=== PATIENT | female | born 1995 | race Caucasian/White ===

== ENCOUNTER 2020-02-23 07:57 | Day surgery (SDC) | payer BC, SELFPAY ==
[2020-02-22 12:25] VITALS: BMI 31.1
[2020-02-23] VITALS (7 sets, daily range): BP systolic 112–124; BP diastolic 72–88; PULSE 77–92; RESP 10–21; TEMP 36.7–37.3; O2SAT 94–100
--- NOTE | 2020-02-23 08:44 | ANES.PREANE2 ---
Pre-Anesthetic Assessment Pre-Anesthetic Assessment: Height/Weight: Height 1.65 m Weight 84.822 kg Temp Pulse Resp BP Pulse Ox 98.1 F 92 16 123/88 98 02/23/20 08:29 02/23/20 08:29 02/23/20 08:29 02/23/20 08:29 02/23/20 08:29 Preop Diagnosis: Desire para sterilization Proposed Procedure: Operation Date: 02/23/20 09:25 Proposed Procedures p Laparoscopic bilateral tubal fulguration with salpingectomy Code: 53625/Z30.2(Bilateral) - Dylan Obando MD s Laparoscopic Salpingectomy(Bilateral) - Dylan Obando MD Last intake: Intake Last Liquid Date 02/22/20 Last Liquid Time 21:00 Last Solid Date 02/22/20 Last Solid Time 17:30 Social: Social History: Alcohol (daily) and Tobacco Exam: Pre-Anes Outpt Exam: alert, oriented x 3, clear to auscultation bilaterally and regular rate & rhythm Airway: Submandibular: WNL Cervical ROM: WNL MP: 2 Dentition: Other (teeth ok) Pulmonary: Pulmonary: None reported CV/HEM: CV/HEM: None reported : : None reported Hepatic: Hepatic: None reported GI: GI: GERD (occ) Metabolic: Metabolic: None reported Musc/skel: Musc/skel: None reported Neuropsych: Neuropsych: None reported Anesthetic Plan: ASA status: 2 Anesthesia: Anesthesia Evaluation and General Risk of > 500 ml blood loss (7ml/kg in children): No PFSH Anesthesia PFSH: Family History Mother Diabetes Hypertension Grandfather Diabetes maternal Heart disease maternal Stroke paternal Grandmother Diabetes maternal Breast cancer paternal Stroke maternal Family/Other Diabetes maternal aunt Social History Smoking and tobacco status: current every day smoker cigarettes Packs smoked per day: 0.5 Alcohol intake: current Alcohol intake frequency: 0-2 Drinks per Day Alcohol type: hard liquor Data Anesthesia Cardiac Studies: No Data to Display
[2020-02-23 08:49] LABS: Basophils # 0.1 10^3/uL (0.0-0.1); Basophils % 0.5 %; Eosinophils # 0.2 10^3/uL (0.0-0.8); Eosinophils % 1.8 %; Hematocrit 44.9 % (37.0-47.0); Hemoglobin 15.4 g/dL (11.5-15.3); Lymphocytes # 2.7 10^3/uL (0.8-4.8); Lymphocytes % 28.1 %; Mean Corpuscular HGB Conc 34.3 g/dL (30.0-36.0); Mean Corpuscular Hemoglobin 31.8 pg (28.0-34.0); Mean Corpuscular Volume 92.8 fL (81-99); Mean Platelet Volume 10.3 fL (7.4-10.4); Monocytes # 0.7 10^3/uL (0.2-0.9); Monocytes % 7.2 %; Neutrophils # 5.9 10^3/uL (1.8-7.7); Neutrophils % 62.2 %; Nucleated Red Blood Cells % 0 %; Platelet Count 212 10^3/cmm (130-400); Red Blood Count 4.84 10^6/uL (4.1-5.3); Red Cell Distribution Width 12.8 % (12.1-15.1); White Blood Count 9.4 10^3/uL (4.0-10.0)
[2020-02-23] MEDS: sodium chloride 0.9% 1,000 ML 30 ML IV (08:52)
[2020-02-23 08:59] LABS: OR HCG Qualitative Urine Negative (Negative)
[2020-02-23 09:06] LABS: Anion Gap 15.4 (5-19); Blood Urea Nitrogen 9 mg/dL (6-20); Calcium 9.6 mg/dL (8.5-10.5); Carbon Dioxide 24 mmol/L (22-29); Chloride 103 mmol/L (98-107); Glomerular Filtration Rate 101.1 mL/min (90-130); Glucose 106 mg/dL (65-115); Osmolality Calculated 282 mOsm/kg (285-295); Potassium 4.4 mmol/L (3.5-5.1); Sodium 138 mmol/L (136-145)
--- NOTE | 2020-02-23 09:13 | W.PM.OPSUD ---
Surgery/Procedure H&P Update DATE OF PROCEDURE: February 23, 2020 DATE H&P PERFORMED: 02/22/20 H&P UPDATE INFORMATION: I have reviewed H&P completed within last 30 days, I have examined patient prior to procedure and No changes to prior documentation PREOP DIAGNOSIS: Desire para sterilization PLANNED PROCEDURE: Operation Date: 02/23/20 09:25 Proposed Procedures p Laparoscopic bilateral tubal fulguration with salpingectomy Code: 36269/Z30.2(Bilateral) - Dylan Obando MD s Laparoscopic Salpingectomy(Bilateral) - Dylan Obando MD
--- NOTE | 2020-02-23 10:54 | PM.OP ---
Operative Report Date of procedure: February 23, 2020 Pre-op Diagnosis: Desire para sterilization, Desire removal of Mirena IUS Post-op diagnosis: same Procedure Done: Laparoscopic bilateral fulguration salpingectomy Specimens removed/disposition: Left and right fallopian tubes Surgeon: Dylan Obando Anesthesia: General Estimated blood loss (mL): 10 IV fluids (mL): 800 Urine output (mL): 300 Complications: None Findings: Normal uterus fallopian tubes and ovaries. Mirena IUS identified Condition: stable Disposition: PACU Brief History: 34-year-old female desire permanent sterilization and removal of the Mirena IUS Procedure: After informed consent, the patient was taken to the operating room where general anesthesia was administered. She was placed in the dorsal lithotomy position and prepped and draped in sterile fashion. Pre-Procedure Time-Out verifying the correct patient identity, correct procedure verified with consent, correct site and side, correct patient position, availability of correct implants and any special equipment or requirements was performed and acknowledge by the OR team. The patient was examined under anesthesia and found to have a normal uterus with normal adnexa. An open side speculum was placed in the vagina, and the anterior lip of cervix was grasped with the single toothed tenaculum. No IUS strins were visualized. A uterine sound was pass through the cervical canal and uterine cavity measured 8 cm. A uterine manipulator was advanced into the endocervical canal and uterus to the determine depth by uterine sound. The tenaculum was removed after uterine manipulator was secured. The speculum was removed from the vagina. An intraumbilical incision was made with a scalpel. While tenting up on the abdomen, a Verres needle was admitted into the intra-abdominal cavity. A saline drop test was performed and noted to be within normal limits. Pneumoperitoneum was attained with 4 liters of carbon dioxide. The Verres needle was removed. A 5 mm Opitc view trocar and sleeve were admitted into the abdomen and laparoscopic confirmation of location was achieved. A second incision was made 3 cm above the symphysis pubis, and a 5 mm trocar sleeves were admitted into the abdomen under direct laparoscopic visualization without complication. A survey revealed normal abdominal anatomy with the exception of string adhesion to the right lower anterior abdominal wall. A 5 mm blunt probe was advanced through the second trocar sleeve, and light manipulation of ovaries and uterus to assess the posterior aspects was performed. The pelvic survey shows normal uterus, left and right adnexa. The left ovary was noted with a follicular cyst. The string adhesion was fulgurated and transected with good hemostasis with the Voyant. The patient was placed into Trendelenburg position. The fallopian tubes were inspected bilaterally and the fimbriated ends of the fallopian tubes were visualized bilaterally. Attention was then directed to the right side. The fallopian tube and mesosalpinx were grasped and the underlying mesosalpinx was cauterized and cut using the Voyant device. Serial cauterization and cutting was used to separate the fallopian tube from the underlying mesosalpinx until it could be amputated cutting it approximated 2 cm from the cornua. Attention was then turned to the contralateral fallopian tube, which was removed in similar fashion. Both specimens were removed through the trocar and sent to pathology. The instruments were removed. The suprapubic trocar port was removed under direct visualization insuring good hemostasis. The carbon dioxide was allowed to escape from the abdomen. The intraumbilical trocar sleeve was withdrawn under visualization with laparoscope in the sleeve to insure hemostasis. The skin incisions were closed with 3-O Monocryl subcuticular stich and Dermabond. The proceeded to remove the Mirena IUS. A sterile speculum was placed in the vagina, and the anterior lip of cervix was grasped with the single toothed tenaculum. A small ring forcepes was pass through cervical cannal and the Mirena IUS was grasped and pull from intrauterine cavity without complications. The instruments were removed from the vagina, and excellent hemostasis was noted. The patient tolerated the procedure well, and sponge, lap and needle count were correct times two. The patient was taken to the recovery room in good condition.
== END 2020-02-23 11:45 | disposition home or self-care (01) ==
PROVIDERS: PCP Registered Nurse; Visit Provider Obstetrics & Gynecology
PROC: (CPT 58661; 2020-02-23 09:25)
DX: Z30.2 Encounter for sterilization (principal); K21.9 Gastro-esophageal reflux disease without esophagitis; Z82.49 Family history of ischemic heart disease and other diseases of the circulatory system; Z83.3 Family history of diabetes mellitus; F17.210 Nicotine dependence, cigarettes, uncomplicated
CPT/HCPCS: 58670; 12345; 80048; 84703; 85025; 86850; 86900; 87086; 88302; J0690; J1100; J1885; J2001; J2405; J2704; J2710; J3010; J3490; J7030

== ENCOUNTER 2022-11-15 23:35 | Emergency (ER) | payer SELFPAY ==
[2022-11-15 23:42] VITALS: BP 125/82; PULSE 92; RESP 16; TEMP 36.6; O2SAT 98; BMI 26.6
--- NOTE | 2022-11-15 23:46 | XRR_ITS ---
PROCEDURE INFORMATION: Exam: XR Left Ankle Exam date and time: 11/15/2022 11:49 PM Age: 27 years old Clinical indication: Pain; Ankle; Left; Additional info: Pain, no injury, pain started in ankle now going to knee TECHNIQUE: Imaging protocol: Radiologic exam of the Left ankle. Views: 3 or more views. COMPARISON: No relevant prior studies available. FINDINGS: Bones/joints: Normal. Soft tissues: Normal. XR/XR ankle LT min 3V* [id number] IMPRESSION: No acute findings.
--- NOTE | 2022-11-15 23:54 | ED_ITS ---
HPI - Extremity Problem General: Chief complaint: Extremity Injury, Lower Stated complaint: left ankle pain radiating to knee Time Seen by Provider: 11/15/22 23:37 Source: patient Mode of arrival: ambulatory Limitations: no limitations History of Present Illness: 27-year-old female states she been having some left ankle pain mainly over the posterior portion of her left ankle states its worse with walking states she has a job where she had to walk more than typical denies any specific injury denies any fevers. It is improved with rest Associated symptoms: Deny chest pain, fever(s) or rash Review of Systems Const: Denies: fever(s), chills, body aches or change in appetite Eyes: Denies: blurry vision or eye discomfort ENMT: Denies: throat pain or dental pain Card: Denies: chest pain Resp: Denies: dyspnea GI: Denies: abdominal pain, nausea, vomiting or diarrhea : Denies: dysuria Musc: Reports: extremity pain Skin/Breast: Denies: rash Neuro: Denies: headache(s) Psych: Denies: depression Hunter/Lymph: Denies: easy bruising All/Imm: Denies: urticaria PFSH ED PFSH: Medical History Aftercare following surgery of the genitourinary system PCOS (polycystic ovarian syndrome) Surgical History (Updated 07/11/20 @ 07:06 by Dylan Obando MD) H/O bilateral salpingectomy 02/23/2020- [place] bilateral fulguration [place] [facility] [place] Family History Mother Diabetes Hypertension Grandfather Diabetes maternal Heart disease maternal Stroke paternal Grandmother Diabetes maternal Breast cancer paternal Stroke maternal Family/Other Diabetes maternal aunt Social History Smoking and tobacco status: current every day smoker cigarettes Packs smoked per day: 0.5 Alcohol intake: current Alcohol intake frequency: holidays/special occasions only Alcohol type: hard liquor Physical Exam Const: COMMON NORMALS: no acute distress HENMT: COMMON NORMALS: normocephalic HEAD & SCALP: normocephalic Eye: COMMON NORMALS: conjunctivae normal CONJUNCTIVA: Yes conjunctivae normal Neck/C-Spine: COMMON NORMALS: supple Chest: COMMONS NORMALS: normal inspection of the chest Resp: COMMON NORMALS: normal respiratory effort Cardio: COMMON NORMALS: regular rate RATE: regular rate GI: INSPECTION: Yes normal to inspection Extremity: NARRATIVE EXTREMITY EXAM: Tenderness over left Achilles tendon no signs of rupture no warmth to touch over ankle no deformity distal pulses intact Course Vital Signs: Vital signs: Vital Signs Temperature 98 F 11/15/22 23:42 Pulse Rate 92 11/15/22 23:42 Respiratory Rate 16 11/15/22 23:42 Blood Pressure 125/82 11/15/22 23:42 Pulse Oximetry 98 11/15/22 23:42 MDM - Extremity (Nontraumatic) Medical Decision Making Patient presents with likely Achilles tendinitis she is tender over her left Achilles tendon no warmth to touch her ankle no signs of infection no signs of fracture on her x-rays she is stable for discharge she is to [employer] wrap ice and rest Discharge Plan Discharge Patient Disposition: Home Clinical Impression: Achilles tendinitis Condition: Stable Prescriptions: New Naprosyn 500 mg tablet 500 mg PO BID PRN (Reason: pain) Qty: 20 0RF No Action montelukast 10 mg tablet 10 mg PO DAILY norgestimate-ethinyl estradiol [Sprintec (28)] 0.25-35 mg-mcg tablet 1 tab PO DAILY Qty: 84 0RF Rx Instructions: RBVO Dr. Obando/Ivan Bolanos, RN ibuprofen 800 mg tablet 800 mg PO TID PRN (Reason: pain, moderate) Qty: 90 0RF Discharge Orders: Discharge ED (Routine); Ordered 11/15/22 Ordered By: Nestor Harris Referrals: Haley Chauhan [Primary Care Provider] - 1-3 days Discharge Diet: Advance as tolerated Discharge Activity: Resume usual activity Patient Instructions: Achilles Tendinitis (ED) Stand Alone Forms: Work/School Release Coding Level of Care Code ED Firmware Engineer for Jami Abreu
[2022-11-16] MEDS: naproxen 500 mg Tablet PO (00:06)
== END 2022-11-16 00:17 | disposition home or self-care (01) ==
PROVIDERS: Emergency Provider Emergency Medicine; PCP Registered Nurse
DX: M76.62 Achilles tendinitis, left leg (principal); F17.210 Nicotine dependence, cigarettes, uncomplicated
CPT/HCPCS: 73610; 99283

== ENCOUNTER 2023-06-02 08:49 | Emergency (ER) | payer BC, MEDICAID, SELFPAY ==
--- NOTE | 2023-06-02 08:53 | ED_ITS ---
HPI - Abdominal Pain General: Chief Complaint: Abdominal Pain Stated Complaint: left lower abd pain Time Seen by Provider: 06/02/23 08:52 Source: patient Mode of arrival: ambulatory History of Present Illness: 28-year-old female who presents to the emergency room with cramping that is more prominent on the right side. It radiates into her back. She previously had tubal ligation. She not had any fever sweats or chills no dysuria urgency or frequency MD elicited complaint: other (Right-sided pelvic pain) Onset (ago): hour(s) Pain Consistency: constant Location: Pelvis (R) Severity: moderate Quality: cramping Radiation: back Exacerbating factors: nothing Relieving factors: nothing Associated Symptoms: Reports GI cramping; Denies anorexia, chills, dyspepsia, dysuria, fever(s), hematuria, loose stools, nausea, poor appetite and vomiting Review of Systems Const: Denies: fever(s) or chills Card: Denies: chest pain Resp: Denies: dyspnea GI: Reports: abdominal pain and GI cramping; Denies: nausea or vomiting : Denies: dysuria, urinary frequency, urinary urgency or hematuria Skin/Breast: Denies: rash or pruritus PFSH ED PFSH: Medical History Aftercare following surgery of the genitourinary system PCOS (polycystic ovarian syndrome) Surgical History H/O bilateral salpingectomy 02/23/2020- laparoscopic bilateral fulguration salpingectomy performed by Dr. Obando at [facility] [place]P [place] 06/28/2016 Family History Mother Diabetes Hypertension Grandfather Diabetes maternal Heart disease maternal Stroke paternal Grandmother Diabetes maternal Breast cancer paternal Stroke maternal Family/Other Diabetes maternal aunt Social History Smoking and tobacco status: current every day smoker cigarettes Packs smoked per day: 0.5 Alcohol intake: current Alcohol intake frequency: holidays/special occasions only Alcohol type: hard liquor Substance/Drug Use: never Physical Exam Narrative: EXAM NARRATIVE: Pelvic exam done by Mallory Petersen and requests no cervical motion tenderness per her report GC chlamydia and wet mount were ordered. Const: GENERAL APPEARANCE: cooperative and comfortable ORIENTATION/CONSCIOUSNESS: Yes awake, Yes oriented to person, Yes oriented to place and Yes oriented to time HENMT: COMMON NORMALS: normocephalic, atraumatic and hearing grossly normal bilaterally HEAD & SCALP: normocephalic and atraumatic Resp: COMMON NORMALS: normal respiratory effort, No retractions, No use of accessory muscles and clear to auscultation bilaterally AUSCULTATION: clear to auscultation bilaterally Cardio: COMMON NORMALS: regular rate, regular rhythm and No murmurs present (Cardio) RATE: regular rate RHYTHM: regular rhythm GI: COMMON NORMALS: Soft to palpation and No hepatosplenomegaly present AUSCULTATION: Yes normoactive bowel sounds PALPATION: Yes Soft to palpation, No Tenderness to palpation present (GI), No Guarding due to palpation present (GI) and Yes No hepatosplenomegaly present Extremity: COMMON NORMALS: normal to inspection, capillary refill normal, no clubbing, cyanosis or edema, no calf tenderness and no pedal edema Neuro: SENSORIUM/ORIENTATION: Yes oriented to person, Yes oriented to place and Yes oriented to time Skin: COMMON NORMALS: no rashes or lesions noted GENERAL SKIN EXAM: no rashes or lesions noted Course Vital Signs: Vital signs: Vital Signs Temperature 97.7 F 06/02/23 08:54 Pulse Rate 72 06/02/23 11:51 Respiratory Rate 18 06/02/23 11:51 Blood Pressure 130/81 06/02/23 11:51 Pulse Oximetry 100 06/02/23 11:51 Oxygen Delivery Me thod Room Air 06/02/23 11:51 MDM - Abdominal Pain Medical Decision Making Laboratory test and imaging unremarkable. Patient has had chronic issues for a number of years with pelvic pain. Reviewed findings with her. Recommend follow-up with PCP for referral to gynecology given diclofenac to use for pain Medical Records I reviewed the patient's medical records. Lab Data I reviewed the patient's lab results. 06/02/23 10:32 06/02/23 10:32 Labs/Radiology: Radiology Impressions Pelvic/Transvag US 06/02/23 10:58 IMPRESSION: Unremarkable pelvic sonogram. Laboratory Results WBC 6.91 10^3/uL (3.29-11.43) 06/02/23 10:32 RBC 4.15 10^6/uL (3.85-5.65) 06/02/23 10:32 Hgb 12.80 g/dL (11.27-16.99) 06/02/23 10:32 Hct 38.7 % (36-47) 06/02/23 10:32 MCV 93.3 fl (85-98) 06/02/23 10:32 MCH 30.8 pg (27-33) 06/02/23 10:32 MCHC 33.1 g/dL (30-55) 06/02/23 10:32 RDW 12.9 % (12.1-15.1) 06/02/23 10:32 Plt Count 218 10^3/cmm (157-399) 06/02/23 10:32 MPV 10.2 fL (7.4-10.4) 06/02/23 10:32 Neut % (Auto) 58.0 % 06/02/23 10:32 Lymph % (Auto) 34.0 % 06/02/23 10:32 [place] % (Auto) 5.2 % 06/02/23 10:32 Eos % (Auto) 1.6 % 06/02/23 10:32 Baso % (Auto) 0.9 % 06/02/23 10:32 Neut # (Auto) 4.01 10^3/uL (1.8-7.7) 06/02/23 10:32 Lymph # (Auto) 2.4 10^3/uL (0.8-4.8) 06/02/23 10:32 [place] # (Auto) 0.4 10^3/uL (0.2-0.9) 06/02/23 10:32 Eos # (Auto) 0.1 10^3/uL (0.0-0.8) 06/02/23 10:32 Baso # (Auto) 0.1 10^3/uL (0.0-0.1) 06/02/23 10:32 Nucleated RBC % (auto) 0 % 06/02/23 10:32 Nucleated RBCs # 0.0 /100WBC 06/02/23 10:32 Sodium 139 mmol/L (136-145) 06/02/23 10:32 Potassium 4.4 mmol/L (3.5-5.1) 06/02/23 10:32 Chloride 103 mmol/L (98-107) 06/02/23 10:32 Carbon Dioxide 27 mmol/L (22-29) 06/02/23 10:32 Anion Gap 13.4 (5-19) 06/02/23 10:32 BUN 9 mg/dL (6-20) 06/02/23 10:32 Creatinine 0.6 mg/dL (0.5-0.9) 06/02/23 10:32 GFR Calculation 117.4 mL/min (90-130) 06/02/23 10:32 Glucose 105 mg/dL (65-115) 06/02/23 10:32 Calculated Osmolality 287 mOsm/kg (285-295) 06/02/23 10:32 Calcium 8.9 mg/dL (8.5-10.5) 06/02/23 10:32 Total Bilirubin 0.3 mg/dL (0.15-1.2) 06/02/23 10:32 AST 14 U/L (0-32) 06/02/23 10:32 ALT 7 U/L (0-33) 06/02/23 10:32 Alkaline Phosphatase 63 U/L (35-105) 06/02/23 10:32 Total Protein 7.4 g/dL (6.6-8.7) 06/02/23 10:32 Albumin 4.5 g/dL (3.5-5.2) 06/02/23 10:32 Globulin 2.9 g/dL (1.3-4.6) 06/02/23 10:32 Lipase 20 U/L (13-60) 06/02/23 10:32 HCG, Qual Negative (Negative) 06/02/23 10:32 Urine Color Straw (Yellow) 06/02/23 10:48 Urine Appearance Clear (CLEAR) 06/02/23 10:48 Urine pH 7 (5-7) 06/02/23 10:48 Ur Specific [place] 1.005 (1.005-1.030) 06/02/23 10:48 Urine Protein Neg (Negative) 06/02/23 10:48 Urine Glucose (UA) Norm (Normal) 06/02/23 10:48 Urine Ketones Negative (Negative) 06/02/23 10:48 Urine Blood 2+ (Negative) H 06/02/23 10:48 Urine Nitrate Negative (Negative) 06/02/23 10:48 Urine Bilirubin Neg (Negative) 06/02/23 10:48 Urine Urobilinogen Norm mg/dL (Negative) 06/02/23 10:48 Ur Leukocyte Esterase Negative (Negative) 06/02/23 10:48 Urine RBC 0-4 /hpf (0-2) H 06/02/23 10:48 Urine WBC None /hpf (0-5) 06/02/23 10:48 Ur Squamous Epith Cells None /hpf (0-5) 06/02/23 10:48 Amorphous Sediment Not Reportable 06/02/23 10:48 Urine Bacteria None /hpf (NONE) 06/02/23 10:48 Discharge Plan Discharge Patient Disposition: Home Clinical Impression: Pelvic pain Condition: Stable Prescriptions: New diclofenac sodium 75 mg tablet,delayed release (DR/EC) 75 mg PO Q12H PRN (Reason: pain) Qty: 20 0RF Discontinued ibuprofen 800 mg tablet 800 mg PO TID PRN (Reason: pain, moderate) Qty: 90 0RF naproxen [Naprosyn] 500 mg tablet 500 mg PO BID PRN (Reason: pain) Qty: 20 0RF No Action montelukast 10 mg tablet 10 mg PO DAILY norgestimate-ethinyl estradiol [Sprintec (28)] 0.25-35 mg-mcg tablet 1 tab PO DAILY Qty: 84 0RF Rx Instructions: RBVO Dr. Obando/Ivan Bolanos power distribution engineer Orders: Discharge ED (Routine); Ordered 06/02/23 Ordered By: Rad Kearney Referrals: Skyler Saldivar FNP [Primary Care Provider] - Discharge Diet: Usual diet Discharge Activity: Increase activity as tolerated Patient Instructions: Opioid Safety, Pain Management Activity Restrictions/Additional Instructions: Follow-up with your primary care provider soon as you are able to consider referral to gynecology to further evaluate your pelvic Coding Level of Care Code ED Loss Prevention Analyst for Jami Abreu
[2023-06-02 08:54] VITALS: BP 119/83; PULSE 74; RESP 18; TEMP 36.5; O2SAT 100; BMI 23.3
[2023-06-02 10:18] VITALS: BP 130/81; PULSE 76; RESP 18; O2SAT 100
[2023-06-02 10:35] VITALS: BP 130/81; PULSE 68; RESP 16; O2SAT 100
[2023-06-02 10:45] LABS: Basophils # 0.1 10^3/uL (0.0-0.1); Basophils % 0.9 %; Eosinophils # 0.1 10^3/uL (0.0-0.8); Eosinophils % 1.6 %; Hematocrit 38.7 % (36-47); Lymphocytes # 2.4 10^3/uL (0.8-4.8); Mean Corpuscular HGB Conc 33.1 g/dL (30-55); Mean Corpuscular Hemoglobin 30.8 pg (27-33); Mean Corpuscular Volume 93.3 fl (85-98); Mean Platelet Volume 10.2 fL (7.4-10.4); Monocytes # 0.4 10^3/uL (0.2-0.9); Monocytes % 5.2 %; Neutrophils # 4.01 10^3/uL (1.8-7.7); Nucleated Red Blood Cells % 0 %; Platelet Count 218 10^3/cmm (157-399); Red Blood Count 4.15 10^6/uL (3.85-5.65); Red Cell Distribution Width 12.9 % (12.1-15.1); White Blood Count 6.91 10^3/uL (3.29-11.43)
--- NOTE | 2023-06-02 10:58 | USR_ITS ---
PROCEDURE INFORMATION: Exam: US Pelvis, Transvaginal Exam date and time: 06/02/2023 11:15 AM Age: 28 years old Clinical indication: Pelvic pain TECHNIQUE: Imaging protocol: Real-time transvaginal pelvic ultrasound with image documentation. Transvaginal imaging was used for better evaluation of the endometrium, adnexa, and/or cervix. COMPARISON: CT abdomen pelvis w con* [id number] 05/20/2018 3:37 PM FINDINGS: Uterus: Uterus is normal, measuring 7.7 x 4.6 x 5.1 cm. Endometrial stripe is normal. Small nabothian cyst noted at the cervix. Right ovary/adnexa: Ovary is normal, measuring 3.5 x 2.1 x 2.5 cm. No mass. Normal ovarian blood flow. Left ovary/adnexa: Ovary is normal, measuring 3.6 x 2.4 x 2.7 cm. No mass. Normal ovarian blood flow. Urinary bladder: Not interrogated. Intraperitoneal space: Small volume free pelvic fluid is likely physiologic. US/US pelv w/transvag [id number] IMPRESSION: Unremarkable pelvic sonogram.
[2023-06-02 11:07] LABS: HCG, Serum Qual Negative (Negative)
[2023-06-02 11:16] LABS: Alanine Aminotransferase 7 U/L (0-33); Albumin Level 4.5 g/dL (3.5-5.2); Alkaline Phosphatase 63 U/L (35-105); Anion Gap 13.4 (5-19); Aspartate Amino Transferase 14 U/L (0-32); Blood Urea Nitrogen 9 mg/dL (6-20); Calcium 8.9 mg/dL (8.5-10.5); Carbon Dioxide 27 mmol/L (22-29); Chloride 103 mmol/L (98-107); Globulin 2.9 g/dL (1.3-4.6); Glomerular Filtration Rate 117.4 mL/min (90-130); Glucose 105 mg/dL (65-115); Lipase 20 U/L (13-60); Osmolality Calculated 287 mOsm/kg (285-295); Potassium 4.4 mmol/L (3.5-5.1); Sodium 139 mmol/L (136-145); Total Bilirubin 0.3 mg/dL (0.15-1.2); Total Protein 7.4 g/dL (6.6-8.7)
[2023-06-02 11:17] LABS: Specific Gravity, Urine 1.005 (1.005-1.030); Urine Appearance Clear (CLEAR); Urine Color Straw (Yellow); pH Urine 7 (5-7)
[2023-06-02 11:18] LABS: Add Urine Microscopic? YES; Bilirubin Urine Neg (Negative); Blood Urine 2+ (Negative); Glucose Urine UA Norm (Normal); Ketones Urine Negative (Negative); Leukocyte Esterase Urine Negative (Negative); Nitrate Urine Negative (Negative); Protein Urine Neg (Negative); RBC Urine 0-4 /hpf (0-2); Urobilinogen Urine Norm (Negative)
[2023-06-02 11:51] VITALS: BP 130/81; PULSE 72; RESP 18; O2SAT 100
[2023-06-03 13:19] LABS: Chlamydia Trachomatis RNA TMA NOT DETECTED (NOT DETECTED); Neisseria Gonorrhoeae RNA, TMA NOT DETECTED (NOT DETECTED)
== END 2023-06-02 12:25 | disposition home or self-care (01) ==
PROVIDERS: Emergency Provider Family Medicine; PCP Nurse Practitioner Family
DX: R10.2 Pelvic and perineal pain (principal); F17.210 Nicotine dependence, cigarettes, uncomplicated
CPT/HCPCS: 76830; 76856; 80053; 81001; 83690; 84703; 85025; 87210; 87491; 87591; 99284